=== PATIENT | female | born 1940 | race Caucasian/White ===

== ENCOUNTER 2017-02-25 08:56 | Outpatient (CLI) | payer MEDICARE, BC | END 2017-02-25 08:57 | disposition home or self-care (01) | LOC: BICMAMMO 08:56 | PROVIDERS: ATTEND Internal Medicine Rheumatology | DX: Z13.820 Encounter for screening for osteoporosis (principal); M81.0 Age-related osteoporosis without current pathological fracture | CPT/HCPCS: 77080 ==

== ENCOUNTER 2018-02-21 08:12 | Outpatient (CLI) | payer MEDICARE, BC | END 2018-02-21 08:13 | disposition home or self-care (01) | LOC: BICMAMMO 08:12 | PROVIDERS: ATTEND Obstetrics & Gynecology | DX: Z12.31 Encounter for screening mammogram for malignant neoplasm of breast (principal); R92.1 Mammographic calcification found on diagnostic imaging of breast; Z80.3 Family history of malignant neoplasm of breast | CPT/HCPCS: 77063; 77067 ==

== ENCOUNTER 2019-02-26 07:44 | Outpatient (CLI) | payer MEDICARE, BC ==
--- NOTE | 2019-02-26 09:28 | BD ---
DEXA BONE DENSITY SCAN: DATE: 02/26/2019. COMPARISON: None. HISTORY: Age-related osteoporosis. FINDINGS: Lumbar Spine: BMD (g/cm2) L1 0.758 T-Score: -2.1 L2 1.077 T-Score: 0.4 L3 1.130 T-Score: 0.4 L4 0.777 T-Score: -0.7 L1-L4 0.944 T-Score: -0.9 Femoral Neck: 0.570 T-Score: -2.5 Total Femur: 0.638 T-Score: -2.5 The FRAX-WHO fracture risk assessment tool reports a 10-year fracture risk in an untreated patient of 15% for major osteoporotic fracture and 5.0% for hip fracture. IMPRESSION: Osteoporosis within the femoral neck/proximal femur, correlating with a high risk for fracture. Overa ll bone mineral density is normal within the lumbar spine, which may be falsely elevated on the basis of degenerative change at the L2 and L3 levels. Transcribed Date/Time: 02/26/2019 9:28 AM
== END 2019-02-26 07:45 | disposition home or self-care (01) ==
LOC: BICMAMMO 07:44
PROVIDERS: ATTEND Internal Medicine Rheumatology
DX: M81.0 Age-related osteoporosis without current pathological fracture (principal)
CPT/HCPCS: 77080

== ENCOUNTER 2021-03-02 08:32 | Outpatient (CLI) | payer MEDICARE, BC | END 2021-03-02 08:33 | disposition home or self-care (01) | LOC: BICMAMMO 08:32 | PROVIDERS: ATTEND Internal Medicine Rheumatology | DX: M81.0 Age-related osteoporosis without current pathological fracture (principal) | CPT/HCPCS: 77080 ==

== ENCOUNTER 2021-10-21 14:04 | Inpatient (IN) | payer MEDICARE, BC ==
[2021-10-21 16:01] LABS: #Lymphocytes 1.1 thou/uL (1.20-3.40); #Monocytes 0.8 thou/uL (0.11-0.59); %Basophils 0.4 % (0.0-1.0); %Eosinophils 0.7 % (0.0-10.0); %Lymphocytes 15.3 % (21.0-51.0); %Monocytes 11.6 % (0.0-10.0); %Neutrophils 72.1 % (42.0-75.0); Hemoglobin 12.8 g/dL (12.0-16.0); Mean Corpuscular HGB CONC 33.2 g/dL (32.0-36.0); Mean Corpuscular Hemoglobin 33.2 pg (27.0-31.0); Mean Corpuscular Volume 99.9 fL (78.0-98.0); Mean Platelet Volume 6.6 fL (7.4-10.4); Platelet Count 235 thou/uL (130-400); RBC Distribution Width 12.2 % (11.5-14.5); Red Blood Cell (RBC) Count 3.87 mill/uL (4.20-5.40); White Blood Cell (WBC) Count 6.9 thou/uL (4.8-10.8)
[2021-10-21 16:25] LABS: ALT (SGPT) 15 U/L (8-55); AST (SGOT) 20 U/L (5-34); Albumin 4.2 g/dL (3.4-4.8); Alkaline Phosphatase 41 U/L (40-110); Anion Gap 15 mmol/L (10-20); BUN (Urea Nitrogen) 43 mg/dL (9.8-20.1); Bilirubin, Total 0.4 mg/dL (0.2-1.2); Calc. Creatinine Clearance 0 mL/min (70-130); Calcium 9.5 mg/dL (7.8-10.44); Carbon Dioxide 27 mmol/L (23-31); Chloride 93 mmol/L (98-107); Estimated GFR 61; Globulin 3.6 g/dL (2.4-3.5); Glucose 114 mg/dL (83-110); Protein, Total 7.8 g/dL (5.8-8.1); Sodium 132 mmol/L (136-145)
[2021-10-21 16:32] LABS: Potassium 2.8 mmol/L (3.5-5.1)
[2021-10-21] MEDS ORDERED: Potassium Chloride 20 MEQ TAB ONE (16:42)
[2021-10-21 16:47] LABS: CKMB 2.3 ng/mL (0-6.6)
[2021-10-21] MEDS ORDERED: Acetaminophen 325 MG TAB PO PRN (17:49)
[2021-10-21] MEDS ORDERED: HYDROcodone/Acetaminophen 5/325 mg Tablet PO PRN (17:58)
[2021-10-21] MEDS ORDERED: Spironolactone 25 MG TAB PO SCH (18:00)
[2021-10-21] MEDS ORDERED: Enoxaparin Sodium 60 MG/0.6 ML SYRINGE ONE (18:17)
[2021-10-21 20:02] LABS: Troponin I 0.025 ng/mL (< 0.028)
[2021-10-21 20:35] LABS: Anion Gap 21 mmol/L (10-20); BUN (Urea Nitrogen) 37 mg/dL (9.8-20.1); Calc. Creatinine Clearance 50 mL/min (70-130); Calcium 9.2 mg/dL (7.8-10.44); Carbon Dioxide 18 mmol/L (23-31); Chloride 100 mmol/L (98-107); Estimated GFR 70; Glucose 128 mg/dL (83-110); Potassium 3.1 mmol/L (3.5-5.1); Sodium 136 mmol/L (136-145)
[2021-10-21] MEDS: Sotalol HCl 80 MG TAB PO SCH (22:21)
[2021-10-21] MEDS: traMADol HCl 50 MG TAB PO PRN (22:21)
[2021-10-21 23:10] LABS: Troponin I 0.041 ng/mL (< 0.028)
[2021-10-22 04:54] LABS: #Lymphocytes 1.1 thou/uL (1.20-3.40); #Monocytes 0.6 thou/uL (0.11-0.59); #Neutrophils 3.8 thou/uL (1.40-6.50); %Basophils 0.2 % (0.0-1.0); %Eosinophils 0.7 % (0.0-10.0); %Lymphocytes 19.8 % (21.0-51.0); %Monocytes 10.3 % (0.0-10.0); Hemoglobin 12.3 g/dL (12.0-16.0); Mean Corpuscular Hemoglobin 32.9 pg (27.0-31.0); Mean Corpuscular Volume 99.7 fL (78.0-98.0); Mean Platelet Volume 7.2 fL (7.4-10.4); Platelet Count 211 thou/uL (130-400); RBC Distribution Width 12.2 % (11.5-14.5); Red Blood Cell (RBC) Count 3.73 mill/uL (4.20-5.40); White Blood Cell (WBC) Count 5.6 thou/uL (4.8-10.8)
[2021-10-22 05:14] LABS: Anion Gap 14 mmol/L (10-20); BUN (Urea Nitrogen) 30 mg/dL (9.8-20.1); Calc. Creatinine Clearance 56 mL/min (70-130); Calcium 9.1 mg/dL (7.8-10.44); Carbon Dioxide 25 mmol/L (23-31); Chloride 101 mmol/L (98-107); Estimated GFR 80; Glucose 102 mg/dL (83-110); Potassium 3.1 mmol/L (3.5-5.1); Sodium 137 mmol/L (136-145)
[2021-10-22] MEDS: Levothyroxine 175 MCG TAB PO SCH (05:27)
[2021-10-22] MEDS: traMADol HCl 50 MG TAB PO PRN ×3 (05:29→20:24)
[2021-10-22] MEDS ORDERED: Levothyroxine Sodium 112 MCG TAB PO SCH (06:00)
[2021-10-22] MEDS ORDERED: Levothyroxine Sodium 25 MCG TAB PO SCH (06:00)
[2021-10-22] MEDS ORDERED: Furosemide 80 MG TAB PO SCH (07:30)
[2021-10-22] MEDS ORDERED: Potassium Chloride 20 MEQ TAB PO SCH (08:00)
[2021-10-22] MEDS ORDERED: Lidocaine 1% 50ML VIAL ONE (08:08)
[2021-10-22] MEDS ORDERED: Heparin 10,000 UNITS/ 10 ML VIAL ONE (08:08)
[2021-10-22] MEDS ORDERED: Protamine Sulfate 50 MG/5 ML VIAL ONE (08:08)
[2021-10-22] MEDS: Lisinopril 2.5 MG TAB PO SCH (09:09)
[2021-10-22] MEDS: Sotalol HCl 80 MG TAB PO SCH ×2 (09:11→20:19)
[2021-10-22] MEDS: Oxybutynin 5 MG TAB PO SCH (09:11)
[2021-10-22] MEDS: Carvedilol 6.25 MG TAB PO SCH ×3 (09:11→20:22)
[2021-10-22] MEDS: Aspirin 81 mg Enteric Coated Tablet PO SCH (09:12)
[2021-10-22] MEDS ORDERED: Phenylephrine 10 MG/ML VIAL ONE (14:23)
[2021-10-22] MEDS ORDERED: Dexamethasone 20 MG/5 ML VIAL ONE (14:23)
[2021-10-22] MEDS ORDERED: PROPOFOL 200 MG/20 ML VIAL ONE (14:23)
[2021-10-22] MEDS ORDERED: Ondansetron PF 4 MG/2 ML Vial ONE (14:23)
[2021-10-22] MEDS ORDERED: Ketamine 50 MG/ML (10ML VIAL) ONE (14:24)
[2021-10-22] MEDS ORDERED: Propofol 1,000 MG/100 ML VIAL IV ONE (14:25)
[2021-10-22] MEDS ORDERED: Clindamycin/D5W 900 mg/50 ml Premix Bag ONE (14:25)
[2021-10-22] MEDS: Apixaban 5 MG TAB PO SCH (20:19)
[2021-10-23] MEDS: traMADol HCl 50 MG TAB PO PRN ×2 (02:48→12:04)
[2021-10-23] MEDS: Levothyroxine 175 MCG TAB PO SCH (06:07)
[2021-10-23] MEDS ORDERED: Potassium Chloride 20 MEQ TAB PO SCH ×2 (08:49→09:00)
[2021-10-23] MEDS: Apixaban 5 MG TAB PO SCH (09:26)
[2021-10-23] MEDS: Oxybutynin 5 MG TAB PO SCH (09:27)
[2021-10-23] MEDS: Carvedilol 6.25 MG TAB PO SCH (09:30)
[2021-10-23] MEDS: Aspirin 81 mg Enteric Coated Tablet PO SCH (09:31)
[2021-10-23] MEDS: Sotalol HCl 80 MG TAB PO SCH (09:31)
[2021-10-23] MEDS: Lisinopril 2.5 MG TAB PO SCH (09:38)
[2021-10-23 09:40] LABS: Anion Gap 13 mmol/L (10-20); BUN (Urea Nitrogen) 17 mg/dL (9.8-20.1); Calc. Creatinine Clearance 58 mL/min (70-130); Calcium 8.3 mg/dL (7.8-10.44); Carbon Dioxide 23 mmol/L (23-31); Chloride 105 mmol/L (98-107); Estimated GFR 86; Glucose 110 mg/dL (83-110); Potassium 3.7 mmol/L (3.5-5.1); Sodium 137 mmol/L (136-145)
[2021-10-23 12:23] VITALS: BP 102/51; TEMP 97.5
[2021-10-24] MEDS ORDERED: Potassium Chloride 20 MEQ TAB PO SCH (08:00)
== END 2021-10-23 15:10 | disposition home or self-care (01) | DRG 229 ==
LOC: ERS 14:04 → ERHOLD 17:20 → 2NO 21:41
PROVIDERS: ADMIT Internal Medicine; ATTEND Family Medicine
PROC: 02584ZZ Destruction of Conduction Mechanism, Percutaneous Endoscopic Approach (ICD-10-PCS; principal; 2021-10-22)
PROC: 02583ZZ Destruction of Conduction Mechanism, Percutaneous Approach (ICD-10-PCS; 2021-10-22)
PROC: 02K83ZZ Map Conduction Mechanism, Percutaneous Approach (ICD-10-PCS; 2021-10-22)
PROC: B246ZZ4 Ultrasonography of Right and Left Heart, Transesophageal (ICD-10-PCS; 2021-10-22)
DX: I48.92 Unspecified atrial flutter (principal); M19.90 Unspecified osteoarthritis, unspecified site; M81.0 Age-related osteoporosis without current pathological fracture; E03.9 Hypothyroidism, unspecified; E87.6 Hypokalemia; I42.0 Dilated cardiomyopathy; I50.9 Heart failure, unspecified; I25.10 Atherosclerotic heart disease of native coronary artery without angina pectoris; M32.9 Systemic lupus erythematosus, unspecified; I48.0 Paroxysmal atrial fibrillation; Z20.822 Contact with and (suspected) exposure to COVID-19; Z98.890 Other specified postprocedural states; Z88.0 Allergy status to penicillin; Z88.2 Allergy status to sulfonamides; Z79.82 Long term (current) use of aspirin; Z79.899 Other long term (current) drug therapy
CPT/HCPCS: 36415; 71045; 80048; 80053; 82553; 83880; 84484; 85025; 93005; 93010; 93312; 93613; 93621; 93653; 93662; J1100; J1644; J1650; J2370; J2405; J2704; J2720; J3490; U0003; U0005

== ENCOUNTER 2022-02-27 12:50 | Emergency (ER) | payer MEDICARE, BC ==
[2022-02-27 13:24] LABS: #Lymphocytes 0.8 thou/uL (1.20-3.40); #Monocytes 0.5 thou/uL (0.11-0.59); #Neutrophils 4.9 thou/uL (1.40-6.50); %Basophils 0.2 % (0.0-1.0); %Eosinophils 0.2 % (0.0-10.0); %Lymphocytes 13.2 % (21.0-51.0); %Monocytes 8.7 % (0.0-10.0); %Neutrophils 77.7 % (42.0-75.0); Hemoglobin 11.6 g/dL (12.0-16.0); Mean Corpuscular HGB CONC 32.6 g/dL (32.0-36.0); Mean Corpuscular Hemoglobin 33.4 pg (27.0-31.0); Platelet Count 298 10x3/uL (130-400); RBC Distribution Width 13.9 % (11.5-14.5); Red Blood Cell (RBC) Count 3.48 mill/uL (4.20-5.40); White Blood Cell (WBC) Count 6.2 10x3/uL (4.8-10.8)
[2022-02-27 13:46] LABS: CK (CPK) 673 U/L (29-168); CRP (Inflammatory) Less than 0.50 mg/dL (= or < 0.5)
[2022-02-27 13:46] LABS: ALT (SGPT) 27 U/L (8-55); AST (SGOT) 49 U/L (5-34); Albumin 3.9 g/dL (3.4-4.8); Alkaline Phosphatase 124 U/L (40-110); Anion Gap 16 mmol/L (10-20); BUN (Urea Nitrogen) 17 mg/dL (9.8-20.1); Bilirubin, Total 0.5 mg/dL (0.2-1.2); Calc. Creatinine Clearance 0 mL/min (70-130); Calcium 8.5 mg/dL (7.8-10.44); Carbon Dioxide 16 mmol/L (23-31); Chloride 108 mmol/L (98-107); Estimated GFR 89; Globulin 3.2 g/dL (2.4-3.5); Glucose 94 mg/dL (83-110); Lipase 7 U/L (8-78); Potassium 4.6 mmol/L (3.5-5.1); Protein, Total 7.1 g/dL (5.8-8.1); Sodium 135 mmol/L (136-145)
[2022-02-27] MEDS ORDERED: Acetaminophen/Codeine 30-300mg Tablet ONE (13:50)
[2022-02-27 14:19] LABS: Bacteria/HPF None Seen HPF (None Seen); Bilirubin Negative (Negative); Blood, Urine Negative (Negative); Clarity Clear (Clear); Glucose, Urine (Dipstick) Normal (Negative); Ketone, Urine 20 mg/dL (Negative); Leukocyte 250 Leu/uL (Negative); Nitrite Negative (Negative); Protein, Urine (Dipstick) Negative (Neg-Trace); RBC/HPF 0-3 HPF (0-3); Specific Gravity, Urine 1.019 (1.002-1.036); Squamous Epithelial 0-3 HPF (0-3); Urobilinogen Normal mg/dL (Less than 2)
[2022-02-27] MEDS ORDERED: Morphine 4 MG/ML VIAL ONE (16:55)
[2022-02-27] MEDS ORDERED: Cephalexin 250 MG CAP ONE (17:01)
== END 2022-02-27 20:09 ==
LOC: ERS 12:50
DX: S32.119A Unspecified Zone I fracture of sacrum, initial encounter for closed fracture (principal); S32.139A Unspecified Zone III fracture of sacrum, initial encounter for closed fracture; N39.0 Urinary tract infection, site not specified; W18.30XA Fall on same level, unspecified, initial encounter; Z79.82 Long term (current) use of aspirin; Z79.899 Other long term (current) drug therapy; Z79.01 Long term (current) use of anticoagulants
CPT/HCPCS: 36415; 72131; 80053; 81003; 81015; 82550; 83690; 85025; 85652; 86140; 96372; J2270

== ENCOUNTER 2023-12-09 17:14 | Emergency (ER) | payer MEDICARE ==
[2023-12-09 18:27] LABS: #Basophils Less than 0.03 10x3/uL (0.0-0.2); #Eosinophils Less than 0.03 10x3/uL (0.0-0.7); %Basophils 0.2 % (0.0-1.0); %Monocytes 5.2 % (0.0-10.0); %Neutrophils 90.2 % (42.0-75.0); Hematocrit 36.4 % (36.0-47.0); Hemoglobin 11.4 g/dL (12.0-16.0); Mean Corpuscular HGB CONC 31.3 g/dL (32.0-36.0); Mean Corpuscular Hemoglobin 31.8 pg (27.0-31.0); Mean Corpuscular Volume 101.7 fL (78.0-98.0); Mean Platelet Volume 10.7 fL (7.4-10.4); Platelet Count 205 10x3/uL (130-400); RBC Distribution Width 14.6 % (11.5-14.5); Red Blood Cell (RBC) Count 3.58 mill/uL (4.20-5.40)
[2023-12-09 18:50] LABS: ALT (SGPT) 24 U/L (8-55); AST (SGOT) 31 U/L (5-34); Albumin 3.4 g/dL (3.4-4.8); Alkaline Phosphatase 97 U/L (40-110); Anion Gap 17 mmol/L (10-20); BUN (Urea Nitrogen) 24 mg/dL (9.8-20.1); Bilirubin, Total 0.5 mg/dL (0.2-1.2); Calc. Creatinine Clearance 0 mL/min (70-130); Calcium 8.6 mg/dL (7.8-10.44); Carbon Dioxide 20 mmol/L (23-31); Chloride 107 mmol/L (98-107); Estimated GFR 68; Globulin 4.5 g/dL (2.4-3.5); Glucose 171 mg/dL (83-110); Potassium 4.6 mmol/L (3.5-5.1); Protein, Total 7.9 g/dL (5.8-8.1); Sodium 139 mmol/L (136-145)
[2023-12-09 18:53] LABS: Troponin I 0.093 ng/mL (< 0.028)
[2023-12-09] MEDS ORDERED: Furosemide 40 MG (4 mL) VIAL ONE (19:08)
[2023-12-09] MEDS ORDERED: Nitroglycerin 0.4 MG TAB 1 EACH ONE (19:08)
== END 2023-12-09 23:05 | disposition short-term general hospital (02) ==
LOC: ERS 17:14
DX: J81.0 Acute pulmonary edema (principal); I50.9 Heart failure, unspecified
CPT/HCPCS: 71045; 80053; 83880; 84484; 85025; 93005; 94660; J1940